=== PATIENT | female | born 1950 | race Caucasian/White ===

== ENCOUNTER → 2019-02-01 | Outpatient (CLI) | payer MEDICARE, BC ==
[~2019-02-01] MED LIST: ACET325 PO; AMOCLA875 PO; Bactrim Ds Tab1 EACH PO; Cleocin HCl150 MG PO; HYDACE5 PO; HYDR1TAB94 PO; Ibuprofen Ib200 MG; Ibuprofen Ib200 MG PO; RXHYDACE PO; TRIA80TC; TRIA80TC TOP
[2019-02-03 13:11] LABS: Stool Occult Bld Immuno 1 Negative (NEGATIVE)
== END | disposition home or self-care (01) ==
LOC: OLS 10:00 → LAB SHORT 10:00
PROVIDERS: Internal Medicine
DX: Z12.11 Encounter for screening for malignant neoplasm of colon (principal)
CPT/HCPCS: G0328

== ENCOUNTER 2020-03-18 14:58 | Emergency (ER) | payer MEDICARE ==
[~2020-03-18] VITALS: Ht 160 cm; Wt 47.2 kg
[~2020-03-18 14:58] MED LIST changes: +GABA100 PO; +LISI5 PO
[2020-03-18 15:38] LABS: BASOPHILS ABSOLUTE AUTO 0.03 K/mm3 (0.00-0.23); BASOPHILS PERCENT AUTO 0 % (0-2); EOSINOPHILS ABSOLUTE AUTO 0.02 K/mm3 (0.00-0.68); EOSINOPHILS PERCENT AUTO 0 % (0-6); Hematocrit 44.4 % (33.0-51.0); Hemoglobin 13.7 g/dL (11.5-16.0); IMMATURE GRAN ABSOLUTE AUTO 0.02 K/mm3 (0.00-0.10); IMMATURE GRAN PERCENT AUTO 0 % (0-1); LYMPHOCYTES ABSOLUTE AUTO 1.19 K/mm3 (0.84-5.20); LYMPHOCYTES PERCENT AUTO 16 % (21-46); MONOCYTES ABSOLUTE AUTO 0.49 K/mm3 (0.16-1.47); MONOCYTES PERCENT AUTO 7 % (4-13); Mean Corpuscular HGB 28.3 pg (26.0-34.0); Mean Corpuscular HGB Conc 30.9 g/dL (31.5-36.5); Mean Corpuscular Volume 92 fL (80-100); Mean Platelet Volume 9.7 fL (9.1-12.4); NEUTROPHILS ABSOLUTE AUTO 5.82 K/mm3 (1.96-9.15); NEUTROPHILS PERCENT AUTO 77 % (41-73); Platelet Count 121 K/mm3 (150-400); RDW Coefficient Variation 18.4 % (11.7-14.2); RDW Standard Deviation 62.4 fL (35.1-46.3); Red Blood Cell Count 4.84 M/mm3 (3.80-5.20); White Blood Cell Count 7.57 K/mm3 (4.00-11.30)
[2020-03-18 15:54] LABS: Alanine Aminotransfer (ALT/SGP 18 U/L (12-78); Albumin, Blood 3.2 g/dL (3.4-5.0); Albumin/Globulin Ratio 0.5 (0.8-1.8); Alk Phos 145 U/L (50-136); Anion Gap 9 mmol/L (6-16); Aspartate Aminotrans (AST/SGOT 63 U/L (12-37); Bilirubin, Total 2.5 mg/dL (0.1-1.0); Blood Urea Nitrogen 11 mg/dL (8-24); Bun/Creatinine Ratio 17.5 (12.0-20.0); CO2, Blood 24 mmol/L (21-32); Calcium, Blood 9.3 mg/dL (8.5-10.1); Chloride, Blood 104 mmol/L (98-108); Creatinine, Blood 0.63 mg/dL (0.40-1.00); Globulin, Blood 7.1 g/dL (2.2-4.0); Glomerular Filtration Rate >60 (60-); Glucose, Blood 125 mg/dL (70-99); Sodium, Blood 137 mmol/L (136-145); Total Protein, Blood 10.3 g/dL (6.4-8.2)
== END 2020-03-19 02:42 | disposition home or self-care (01) ==
LOC: ER 14:58
PROVIDERS: Physician Assistant
DX: J98.2 Interstitial emphysema (principal); C50.912 Malignant neoplasm of unspecified site of left female breast; Z92.21 Personal history of antineoplastic chemotherapy; Z79.899 Other long term (current) drug therapy; Z91.030 Bee allergy status; Z88.2 Allergy status to sulfonamides; Z88.8 Allergy status to other drugs, medicaments and biological substances
CPT/HCPCS: 36415; 71046; 71260; 80053; 85025; 93005; 93010; 99285-25; Q9967

== ENCOUNTER 2020-05-07 00:12 | Day surgery (SDC) | payer MEDICARE | END 2020-05-07 22:36 | disposition home or self-care (01) | LOC: WOUND 00:12 | DX: L98.495 Non-pressure chronic ulcer of skin of other sites with muscle involvement without evidence of necrosis (principal); L03.313 Cellulitis of chest wall; B95.62 Methicillin resistant Staphylococcus aureus infection as the cause of diseases classified elsewhere; B95.4 Other streptococcus as the cause of diseases classified elsewhere; L59.8 Other specified disorders of the skin and subcutaneous tissue related to radiation; C50.812 Malignant neoplasm of overlapping sites of left female breast; C77.3 Secondary and unspecified malignant neoplasm of axilla and upper limb lymph nodes; C79.51 Secondary malignant neoplasm of bone; I10 Essential (primary) hypertension; G62.0 Drug-induced polyneuropathy; Y84.2 Radiological procedure and radiotherapy as the cause of abnormal reaction of the patient, or of later complication, without mention of misadventure at the time of the procedure; Z92.21 Personal history of antineoplastic chemotherapy; Z92.3 Personal history of irradiation; Z99.81 Dependence on supplemental oxygen; Z88.2 Allergy status to sulfonamides; Z91.030 Bee allergy status; Z88.8 Allergy status to other drugs, medicaments and biological substances; Z91.038 Other insect allergy status; Z90.12 Acquired absence of left breast and nipple | CPT/HCPCS: 11102; 87071; 87075; 87077; 87147; 87186; 87205; 88305; 88312; A9270; G0463 ==

== ENCOUNTER 2020-05-12 01:35 | Day surgery (SDC) | payer MEDICARE | END 2020-05-12 22:40 | disposition home or self-care (01) | LOC: WOUND 01:35 | DX: T81.31XA Disruption of external operation (surgical) wound, not elsewhere classified, initial encounter (principal); C50.812 Malignant neoplasm of overlapping sites of left female breast; C77.3 Secondary and unspecified malignant neoplasm of axilla and upper limb lymph nodes; C79.51 Secondary malignant neoplasm of bone; Y83.8 Other surgical procedures as the cause of abnormal reaction of the patient, or of later complication, without mention of misadventure at the time of the procedure | CPT/HCPCS: 88305; 88312; A9270 ==

== ENCOUNTER 2020-05-19 00:08 | Day surgery (SDC) | payer MEDICARE | END 2020-05-19 22:55 | disposition home or self-care (01) | LOC: WOUND 00:08 | DX: L59.8 Other specified disorders of the skin and subcutaneous tissue related to radiation (principal); L98.495 Non-pressure chronic ulcer of skin of other sites with muscle involvement without evidence of necrosis; I96 Gangrene, not elsewhere classified; C50.812 Malignant neoplasm of overlapping sites of left female breast; C77.3 Secondary and unspecified malignant neoplasm of axilla and upper limb lymph nodes; C79.51 Secondary malignant neoplasm of bone; Z86.14 Personal history of Methicillin resistant Staphylococcus aureus infection; Z92.3 Personal history of irradiation; Z92.21 Personal history of antineoplastic chemotherapy; Z90.13 Acquired absence of bilateral breasts and nipples; Y84.2 Radiological procedure and radiotherapy as the cause of abnormal reaction of the patient, or of later complication, without mention of misadventure at the time of the procedure | CPT/HCPCS: A9270 ==

== ENCOUNTER 2020-05-26 00:54 | Day surgery (SDC) | payer MEDICARE | END 2020-05-26 22:54 | disposition home or self-care (01) | LOC: HBO 00:54 | DX: L59.8 Other specified disorders of the skin and subcutaneous tissue related to radiation (principal); L98.499 Non-pressure chronic ulcer of skin of other sites with unspecified severity; C50.812 Malignant neoplasm of overlapping sites of left female breast; C77.3 Secondary and unspecified malignant neoplasm of axilla and upper limb lymph nodes; C79.51 Secondary malignant neoplasm of bone; Z90.12 Acquired absence of left breast and nipple | CPT/HCPCS: A9270; G0277 ==

== ENCOUNTER 2020-05-27 00:33 | Day surgery (SDC) | payer MEDICARE | END 2020-05-27 23:13 | disposition home or self-care (01) | LOC: HBO 00:33 | DX: L59.8 Other specified disorders of the skin and subcutaneous tissue related to radiation (principal); L98.499 Non-pressure chronic ulcer of skin of other sites with unspecified severity; C50.812 Malignant neoplasm of overlapping sites of left female breast; C77.3 Secondary and unspecified malignant neoplasm of axilla and upper limb lymph nodes; C79.51 Secondary malignant neoplasm of bone; Y84.2 Radiological procedure and radiotherapy as the cause of abnormal reaction of the patient, or of later complication, without mention of misadventure at the time of the procedure; Z90.12 Acquired absence of left breast and nipple | CPT/HCPCS: G0277 ==

== ENCOUNTER 2020-05-28 00:16 | Day surgery (SDC) | payer MEDICARE | END 2020-05-28 22:35 | disposition home or self-care (01) | LOC: HBO 00:16 | DX: L59.8 Other specified disorders of the skin and subcutaneous tissue related to radiation (principal); L98.499 Non-pressure chronic ulcer of skin of other sites with unspecified severity; C50.812 Malignant neoplasm of overlapping sites of left female breast; C77.3 Secondary and unspecified malignant neoplasm of axilla and upper limb lymph nodes; C79.51 Secondary malignant neoplasm of bone; Z90.12 Acquired absence of left breast and nipple | CPT/HCPCS: G0277 ==

== ENCOUNTER 2020-05-29 00:13 | Day surgery (SDC) | payer MEDICARE | END 2020-05-29 23:30 | disposition home or self-care (01) | LOC: HBO 00:13 | DX: L59.8 Other specified disorders of the skin and subcutaneous tissue related to radiation (principal); L98.499 Non-pressure chronic ulcer of skin of other sites with unspecified severity; C50.812 Malignant neoplasm of overlapping sites of left female breast; C77.3 Secondary and unspecified malignant neoplasm of axilla and upper limb lymph nodes; C79.51 Secondary malignant neoplasm of bone | CPT/HCPCS: G0277 ==

== ENCOUNTER 2020-05-30 02:08 | Day surgery (SDC) | payer MEDICARE | END 2020-05-30 22:36 | disposition home or self-care (01) | LOC: HBO 02:08 | DX: L59.8 Other specified disorders of the skin and subcutaneous tissue related to radiation (principal); L98.499 Non-pressure chronic ulcer of skin of other sites with unspecified severity; C50.812 Malignant neoplasm of overlapping sites of left female breast; C77.3 Secondary and unspecified malignant neoplasm of axilla and upper limb lymph nodes; C79.51 Secondary malignant neoplasm of bone | CPT/HCPCS: G0277 ==

== ENCOUNTER 2020-06-02 02:27 | Day surgery (SDC) | payer MEDICARE | END 2020-06-02 22:51 | disposition home or self-care (01) | LOC: HBO 02:27 | DX: L59.8 Other specified disorders of the skin and subcutaneous tissue related to radiation (principal); L98.499 Non-pressure chronic ulcer of skin of other sites with unspecified severity; C50.812 Malignant neoplasm of overlapping sites of left female breast; C77.3 Secondary and unspecified malignant neoplasm of axilla and upper limb lymph nodes; C79.51 Secondary malignant neoplasm of bone | CPT/HCPCS: A9270; G0277 ==

== ENCOUNTER 2020-06-04 01:22 | Day surgery (SDC) | payer MEDICARE | END 2020-06-04 22:45 | disposition home or self-care (01) | LOC: HBO 01:22 | DX: L59.8 Other specified disorders of the skin and subcutaneous tissue related to radiation (principal); L98.499 Non-pressure chronic ulcer of skin of other sites with unspecified severity; C50.812 Malignant neoplasm of overlapping sites of left female breast; C77.3 Secondary and unspecified malignant neoplasm of axilla and upper limb lymph nodes; C79.51 Secondary malignant neoplasm of bone | CPT/HCPCS: G0277 ==

== ENCOUNTER 2020-06-05 00:20 | Day surgery (SDC) | payer MEDICARE | END 2020-06-05 22:47 | disposition home or self-care (01) | LOC: HBO 00:20 | DX: L59.8 Other specified disorders of the skin and subcutaneous tissue related to radiation (principal); L98.499 Non-pressure chronic ulcer of skin of other sites with unspecified severity; C50.812 Malignant neoplasm of overlapping sites of left female breast; C77.3 Secondary and unspecified malignant neoplasm of axilla and upper limb lymph nodes; C79.51 Secondary malignant neoplasm of bone | CPT/HCPCS: G0277 ==

== ENCOUNTER 2020-06-06 08:34 | Day surgery (SDC) | payer MEDICARE | END 2020-06-06 22:45 | disposition home or self-care (01) | LOC: HBO 08:34 | DX: L59.8 Other specified disorders of the skin and subcutaneous tissue related to radiation (principal); L98.499 Non-pressure chronic ulcer of skin of other sites with unspecified severity; C50.812 Malignant neoplasm of overlapping sites of left female breast; C77.3 Secondary and unspecified malignant neoplasm of axilla and upper limb lymph nodes; C79.51 Secondary malignant neoplasm of bone | CPT/HCPCS: G0277 ==

== ENCOUNTER 2020-06-09 08:00 | Day surgery (SDC) | payer MEDICARE | END 2020-06-09 23:59 | disposition home or self-care (01) | LOC: HBO 08:00 | DX: L59.8 Other specified disorders of the skin and subcutaneous tissue related to radiation (principal); L98.495 Non-pressure chronic ulcer of skin of other sites with muscle involvement without evidence of necrosis; C50.812 Malignant neoplasm of overlapping sites of left female breast; C77.3 Secondary and unspecified malignant neoplasm of axilla and upper limb lymph nodes; C79.51 Secondary malignant neoplasm of bone; Z90.12 Acquired absence of left breast and nipple; Y84.2 Radiological procedure and radiotherapy as the cause of abnormal reaction of the patient, or of later complication, without mention of misadventure at the time of the procedure | CPT/HCPCS: A9270; G0277 ==

== ENCOUNTER 2020-06-11 00:22 | Day surgery (SDC) | payer MEDICARE | END 2020-06-11 22:39 | disposition home or self-care (01) | LOC: HBO 00:22 | DX: L59.8 Other specified disorders of the skin and subcutaneous tissue related to radiation (principal); L98.499 Non-pressure chronic ulcer of skin of other sites with unspecified severity; C50.812 Malignant neoplasm of overlapping sites of left female breast; C77.3 Secondary and unspecified malignant neoplasm of axilla and upper limb lymph nodes; C79.51 Secondary malignant neoplasm of bone | CPT/HCPCS: G0277 ==

== ENCOUNTER 2020-06-12 00:24 | Day surgery (SDC) | payer MEDICARE | END 2020-06-12 22:50 | disposition home or self-care (01) | LOC: HBO 00:24 | DX: L59.8 Other specified disorders of the skin and subcutaneous tissue related to radiation (principal); L98.499 Non-pressure chronic ulcer of skin of other sites with unspecified severity; C50.812 Malignant neoplasm of overlapping sites of left female breast; C77.3 Secondary and unspecified malignant neoplasm of axilla and upper limb lymph nodes; C79.51 Secondary malignant neoplasm of bone | CPT/HCPCS: G0277 ==

== ENCOUNTER 2020-06-13 00:33 | Day surgery (SDC) | payer MEDICARE | END 2020-06-13 22:55 | disposition home or self-care (01) | LOC: HBO 00:33 | DX: L59.8 Other specified disorders of the skin and subcutaneous tissue related to radiation (principal); L98.499 Non-pressure chronic ulcer of skin of other sites with unspecified severity; C50.812 Malignant neoplasm of overlapping sites of left female breast; C77.3 Secondary and unspecified malignant neoplasm of axilla and upper limb lymph nodes; C79.51 Secondary malignant neoplasm of bone | CPT/HCPCS: G0277 ==

== ENCOUNTER 2020-06-16 01:40 | Day surgery (SDC) | payer MEDICARE | END 2020-06-16 22:45 | disposition home or self-care (01) | LOC: HBO 01:40 | DX: L59.8 Other specified disorders of the skin and subcutaneous tissue related to radiation (principal); L98.499 Non-pressure chronic ulcer of skin of other sites with unspecified severity; C50.812 Malignant neoplasm of overlapping sites of left female breast; C77.3 Secondary and unspecified malignant neoplasm of axilla and upper limb lymph nodes; C79.51 Secondary malignant neoplasm of bone | CPT/HCPCS: G0277 ==

== ENCOUNTER 2020-06-18 00:19 | Day surgery (SDC) | payer MEDICARE | END 2020-06-18 22:44 | disposition home or self-care (01) | LOC: HBO 00:19 | DX: L59.8 Other specified disorders of the skin and subcutaneous tissue related to radiation (principal); L98.499 Non-pressure chronic ulcer of skin of other sites with unspecified severity; C50.812 Malignant neoplasm of overlapping sites of left female breast; C77.3 Secondary and unspecified malignant neoplasm of axilla and upper limb lymph nodes; C79.51 Secondary malignant neoplasm of bone | CPT/HCPCS: G0277 ==

== ENCOUNTER 2020-06-20 00:55 | Day surgery (SDC) | payer MEDICARE | END 2020-06-20 23:06 | disposition home or self-care (01) | LOC: HBO 00:55 | DX: L59.8 Other specified disorders of the skin and subcutaneous tissue related to radiation (principal); L98.499 Non-pressure chronic ulcer of skin of other sites with unspecified severity; C50.812 Malignant neoplasm of overlapping sites of left female breast; C77.3 Secondary and unspecified malignant neoplasm of axilla and upper limb lymph nodes; C79.51 Secondary malignant neoplasm of bone | CPT/HCPCS: G0277 ==

== ENCOUNTER 2020-06-23 00:31 | Day surgery (SDC) | payer MEDICARE | END 2020-06-23 22:36 | disposition home or self-care (01) | LOC: HBO 00:31 | DX: L59.8 Other specified disorders of the skin and subcutaneous tissue related to radiation (principal); L98.499 Non-pressure chronic ulcer of skin of other sites with unspecified severity; C50.812 Malignant neoplasm of overlapping sites of left female breast; C77.3 Secondary and unspecified malignant neoplasm of axilla and upper limb lymph nodes; C79.51 Secondary malignant neoplasm of bone | CPT/HCPCS: G0277 ==

== ENCOUNTER 2020-06-24 00:24 | Day surgery (SDC) | payer MEDICARE | END 2020-06-24 22:36 | disposition home or self-care (01) | LOC: WOUND 00:24 | DX: L59.8 Other specified disorders of the skin and subcutaneous tissue related to radiation (principal); L98.499 Non-pressure chronic ulcer of skin of other sites with unspecified severity; C50.812 Malignant neoplasm of overlapping sites of left female breast; C77.8 Secondary and unspecified malignant neoplasm of lymph nodes of multiple regions; C79.51 Secondary malignant neoplasm of bone | CPT/HCPCS: A9270 ==

== ENCOUNTER 2020-06-26 00:35 | Day surgery (SDC) | payer MEDICARE | END 2020-06-26 23:14 | disposition home or self-care (01) | LOC: HBO 00:35 | DX: L59.8 Other specified disorders of the skin and subcutaneous tissue related to radiation (principal); L98.499 Non-pressure chronic ulcer of skin of other sites with unspecified severity; C50.812 Malignant neoplasm of overlapping sites of left female breast; C77.3 Secondary and unspecified malignant neoplasm of axilla and upper limb lymph nodes; C79.51 Secondary malignant neoplasm of bone; Y84.2 Radiological procedure and radiotherapy as the cause of abnormal reaction of the patient, or of later complication, without mention of misadventure at the time of the procedure | CPT/HCPCS: G0277 ==

== ENCOUNTER 2020-06-27 00:52 | Day surgery (SDC) | payer MEDICARE | END 2020-06-27 23:22 | disposition home or self-care (01) | LOC: HBO 00:52 | DX: L59.8 Other specified disorders of the skin and subcutaneous tissue related to radiation (principal); L98.499 Non-pressure chronic ulcer of skin of other sites with unspecified severity; C50.812 Malignant neoplasm of overlapping sites of left female breast; C77.3 Secondary and unspecified malignant neoplasm of axilla and upper limb lymph nodes; C79.51 Secondary malignant neoplasm of bone; Y84.2 Radiological procedure and radiotherapy as the cause of abnormal reaction of the patient, or of later complication, without mention of misadventure at the time of the procedure | CPT/HCPCS: G0277 ==

== ENCOUNTER 2020-06-30 00:32 | Day surgery (SDC) | payer MEDICARE | END 2020-06-30 22:59 | disposition home or self-care (01) | LOC: HBO 00:32 | DX: L59.8 Other specified disorders of the skin and subcutaneous tissue related to radiation (principal); L98.499 Non-pressure chronic ulcer of skin of other sites with unspecified severity; C50.812 Malignant neoplasm of overlapping sites of left female breast; C77.3 Secondary and unspecified malignant neoplasm of axilla and upper limb lymph nodes; C79.51 Secondary malignant neoplasm of bone | CPT/HCPCS: G0277 ==

== ENCOUNTER 2020-07-01 00:31 | Day surgery (SDC) | payer MEDICARE | END 2020-07-01 23:21 | disposition home or self-care (01) | LOC: HBO 00:31 | DX: L59.8 Other specified disorders of the skin and subcutaneous tissue related to radiation (principal); L98.499 Non-pressure chronic ulcer of skin of other sites with unspecified severity; C50.812 Malignant neoplasm of overlapping sites of left female breast; C77.3 Secondary and unspecified malignant neoplasm of axilla and upper limb lymph nodes; C79.51 Secondary malignant neoplasm of bone | CPT/HCPCS: G0277 ==

== ENCOUNTER 2020-07-01 00:39 | Day surgery (SDC) | payer MEDICARE | END 2020-07-01 23:21 | disposition home or self-care (01) | LOC: WOUND 00:39 | DX: L59.8 Other specified disorders of the skin and subcutaneous tissue related to radiation (principal); L98.499 Non-pressure chronic ulcer of skin of other sites with unspecified severity; C50.812 Malignant neoplasm of overlapping sites of left female breast; C77.3 Secondary and unspecified malignant neoplasm of axilla and upper limb lymph nodes; C79.51 Secondary malignant neoplasm of bone | CPT/HCPCS: A9270 ==

== ENCOUNTER 2020-07-10 01:58 | Day surgery (SDC) | payer MEDICARE | END 2020-07-10 22:56 | disposition home or self-care (01) | LOC: HBO 01:58 | DX: L59.8 Other specified disorders of the skin and subcutaneous tissue related to radiation (principal); L98.499 Non-pressure chronic ulcer of skin of other sites with unspecified severity; C50.812 Malignant neoplasm of overlapping sites of left female breast; C77.3 Secondary and unspecified malignant neoplasm of axilla and upper limb lymph nodes; C79.51 Secondary malignant neoplasm of bone | CPT/HCPCS: A9270; G0277 ==

== ENCOUNTER 2020-07-11 02:10 | Day surgery (SDC) | payer MEDICARE | END 2020-07-11 23:00 | disposition home or self-care (01) | LOC: HBO 02:10 | DX: L59.8 Other specified disorders of the skin and subcutaneous tissue related to radiation (principal); L98.499 Non-pressure chronic ulcer of skin of other sites with unspecified severity; C50.812 Malignant neoplasm of overlapping sites of left female breast; C77.3 Secondary and unspecified malignant neoplasm of axilla and upper limb lymph nodes; C79.51 Secondary malignant neoplasm of bone | CPT/HCPCS: A9270; G0277; J0690; J2250; J3010; J7030 ==

== ENCOUNTER 2020-07-14 00:08 | Day surgery (SDC) | payer MEDICARE | END 2020-07-14 22:37 | disposition home or self-care (01) | LOC: HBO 00:08 | DX: L59.8 Other specified disorders of the skin and subcutaneous tissue related to radiation (principal); L98.499 Non-pressure chronic ulcer of skin of other sites with unspecified severity; C50.812 Malignant neoplasm of overlapping sites of left female breast; C77.3 Secondary and unspecified malignant neoplasm of axilla and upper limb lymph nodes; C79.51 Secondary malignant neoplasm of bone; Y84.2 Radiological procedure and radiotherapy as the cause of abnormal reaction of the patient, or of later complication, without mention of misadventure at the time of the procedure | CPT/HCPCS: G0277 ==

== ENCOUNTER 2020-07-15 00:20 | Day surgery (SDC) | payer MEDICARE | END 2020-07-15 22:40 | disposition home or self-care (01) | LOC: WOUND 00:20 | DX: T81.31XA Disruption of external operation (surgical) wound, not elsewhere classified, initial encounter (principal); L59.8 Other specified disorders of the skin and subcutaneous tissue related to radiation; L98.499 Non-pressure chronic ulcer of skin of other sites with unspecified severity; C50.812 Malignant neoplasm of overlapping sites of left female breast; C77.3 Secondary and unspecified malignant neoplasm of axilla and upper limb lymph nodes; C79.51 Secondary malignant neoplasm of bone | CPT/HCPCS: A9270 ==

== ENCOUNTER 2020-07-15 00:29 | Day surgery (SDC) | payer MEDICARE | END 2020-07-15 22:40 | disposition home or self-care (01) | LOC: HBO 00:29 | DX: L59.8 Other specified disorders of the skin and subcutaneous tissue related to radiation (principal); L98.499 Non-pressure chronic ulcer of skin of other sites with unspecified severity; C50.812 Malignant neoplasm of overlapping sites of left female breast; C77.3 Secondary and unspecified malignant neoplasm of axilla and upper limb lymph nodes; C79.51 Secondary malignant neoplasm of bone | CPT/HCPCS: G0277 ==

== ENCOUNTER 2020-07-17 00:27 | Day surgery (SDC) | payer MEDICARE | END 2020-07-17 22:37 | disposition home or self-care (01) | LOC: HBO 00:27 | DX: L59.8 Other specified disorders of the skin and subcutaneous tissue related to radiation (principal); L98.499 Non-pressure chronic ulcer of skin of other sites with unspecified severity; C50.812 Malignant neoplasm of overlapping sites of left female breast; C79.51 Secondary malignant neoplasm of bone; C77.3 Secondary and unspecified malignant neoplasm of axilla and upper limb lymph nodes; Y84.2 Radiological procedure and radiotherapy as the cause of abnormal reaction of the patient, or of later complication, without mention of misadventure at the time of the procedure; Z90.12 Acquired absence of left breast and nipple | CPT/HCPCS: G0277 ==

== ENCOUNTER 2020-07-18 00:47 | Day surgery (SDC) | payer MEDICARE | END 2020-07-18 22:59 | disposition home or self-care (01) | LOC: HBO 00:47 | DX: L59.8 Other specified disorders of the skin and subcutaneous tissue related to radiation (principal); L98.499 Non-pressure chronic ulcer of skin of other sites with unspecified severity; C50.812 Malignant neoplasm of overlapping sites of left female breast; C77.3 Secondary and unspecified malignant neoplasm of axilla and upper limb lymph nodes; C79.51 Secondary malignant neoplasm of bone | CPT/HCPCS: G0277 ==

== ENCOUNTER 2020-07-21 00:14 | Day surgery (SDC) | payer MEDICARE | END 2020-07-21 22:46 | disposition home or self-care (01) | LOC: HBO 00:14 | DX: L59.8 Other specified disorders of the skin and subcutaneous tissue related to radiation (principal); L98.499 Non-pressure chronic ulcer of skin of other sites with unspecified severity; C50.812 Malignant neoplasm of overlapping sites of left female breast; C77.3 Secondary and unspecified malignant neoplasm of axilla and upper limb lymph nodes; C79.51 Secondary malignant neoplasm of bone; Y84.2 Radiological procedure and radiotherapy as the cause of abnormal reaction of the patient, or of later complication, without mention of misadventure at the time of the procedure | CPT/HCPCS: G0277 ==

== ENCOUNTER 2020-07-22 03:27 | Day surgery (SDC) | payer MEDICARE | END 2020-07-22 23:02 | disposition home or self-care (01) | LOC: WOUND 03:27 | DX: T81.31XA Disruption of external operation (surgical) wound, not elsewhere classified, initial encounter (principal); L59.8 Other specified disorders of the skin and subcutaneous tissue related to radiation; L98.499 Non-pressure chronic ulcer of skin of other sites with unspecified severity; C50.812 Malignant neoplasm of overlapping sites of left female breast; C79.51 Secondary malignant neoplasm of bone; C77.3 Secondary and unspecified malignant neoplasm of axilla and upper limb lymph nodes | CPT/HCPCS: A9270 ==

== ENCOUNTER 2020-07-22 03:28 | Day surgery (SDC) | payer MEDICARE | END 2020-07-22 23:03 | disposition home or self-care (01) | LOC: HBO 03:28 | DX: L59.8 Other specified disorders of the skin and subcutaneous tissue related to radiation (principal); L98.499 Non-pressure chronic ulcer of skin of other sites with unspecified severity; C50.812 Malignant neoplasm of overlapping sites of left female breast; C77.3 Secondary and unspecified malignant neoplasm of axilla and upper limb lymph nodes; C79.51 Secondary malignant neoplasm of bone | CPT/HCPCS: G0277 ==

== ENCOUNTER 2020-07-23 03:46 | Day surgery (SDC) | payer MEDICARE | END 2020-07-23 22:40 | disposition home or self-care (01) | LOC: HBO 03:46 | DX: L59.8 Other specified disorders of the skin and subcutaneous tissue related to radiation (principal); L98.499 Non-pressure chronic ulcer of skin of other sites with unspecified severity; C50.812 Malignant neoplasm of overlapping sites of left female breast; C77.3 Secondary and unspecified malignant neoplasm of axilla and upper limb lymph nodes; C79.51 Secondary malignant neoplasm of bone | CPT/HCPCS: G0277 ==

== ENCOUNTER 2020-07-25 00:40 | Day surgery (SDC) | payer MEDICARE | END 2020-07-25 22:37 | disposition home or self-care (01) | LOC: HBO 00:40 | DX: L59.8 Other specified disorders of the skin and subcutaneous tissue related to radiation (principal); L98.499 Non-pressure chronic ulcer of skin of other sites with unspecified severity; C50.812 Malignant neoplasm of overlapping sites of left female breast; C77.3 Secondary and unspecified malignant neoplasm of axilla and upper limb lymph nodes; C79.51 Secondary malignant neoplasm of bone | CPT/HCPCS: G0277 ==

== ENCOUNTER 2020-07-28 00:13 | Day surgery (SDC) | payer MEDICARE | END 2020-07-28 22:55 | disposition home or self-care (01) | LOC: HBO 00:13 | DX: L59.8 Other specified disorders of the skin and subcutaneous tissue related to radiation (principal); L98.499 Non-pressure chronic ulcer of skin of other sites with unspecified severity; C50.812 Malignant neoplasm of overlapping sites of left female breast; C77.3 Secondary and unspecified malignant neoplasm of axilla and upper limb lymph nodes; C79.51 Secondary malignant neoplasm of bone; Y84.2 Radiological procedure and radiotherapy as the cause of abnormal reaction of the patient, or of later complication, without mention of misadventure at the time of the procedure | CPT/HCPCS: G0277 ==

== ENCOUNTER 2020-07-29 02:59 | Day surgery (SDC) | payer MEDICARE | END 2020-07-29 23:01 | disposition home or self-care (01) | LOC: WOUND 02:59 | DX: T81.31XA Disruption of external operation (surgical) wound, not elsewhere classified, initial encounter (principal); L59.8 Other specified disorders of the skin and subcutaneous tissue related to radiation; L98.499 Non-pressure chronic ulcer of skin of other sites with unspecified severity; C50.812 Malignant neoplasm of overlapping sites of left female breast; C79.51 Secondary malignant neoplasm of bone; C77.3 Secondary and unspecified malignant neoplasm of axilla and upper limb lymph nodes; Z91.030 Bee allergy status; Z88.2 Allergy status to sulfonamides | CPT/HCPCS: A9270 ==

== ENCOUNTER 2020-07-29 03:01 | Day surgery (SDC) | payer MEDICARE | END 2020-07-29 23:01 | disposition home or self-care (01) | LOC: HBO 03:01 | DX: L59.8 Other specified disorders of the skin and subcutaneous tissue related to radiation (principal); L98.499 Non-pressure chronic ulcer of skin of other sites with unspecified severity; C50.812 Malignant neoplasm of overlapping sites of left female breast; C77.3 Secondary and unspecified malignant neoplasm of axilla and upper limb lymph nodes; C79.51 Secondary malignant neoplasm of bone | CPT/HCPCS: G0277 ==

== ENCOUNTER 2020-07-30 03:23 | Day surgery (SDC) | payer MEDICARE | END 2020-07-30 23:17 | disposition home or self-care (01) | LOC: HBO 03:23 | DX: L59.8 Other specified disorders of the skin and subcutaneous tissue related to radiation (principal); L98.499 Non-pressure chronic ulcer of skin of other sites with unspecified severity; C50.812 Malignant neoplasm of overlapping sites of left female breast; C77.3 Secondary and unspecified malignant neoplasm of axilla and upper limb lymph nodes; C79.51 Secondary malignant neoplasm of bone | CPT/HCPCS: G0277 ==

== ENCOUNTER 2020-07-31 03:57 | Day surgery (SDC) | payer MEDICARE | END 2020-07-31 22:56 | disposition home or self-care (01) | LOC: HBO 03:57 | DX: L59.8 Other specified disorders of the skin and subcutaneous tissue related to radiation (principal); L98.499 Non-pressure chronic ulcer of skin of other sites with unspecified severity; C50.812 Malignant neoplasm of overlapping sites of left female breast; C77.3 Secondary and unspecified malignant neoplasm of axilla and upper limb lymph nodes; C79.51 Secondary malignant neoplasm of bone | CPT/HCPCS: G0277 ==

== ENCOUNTER 2020-08-01 00:56 | Day surgery (SDC) | payer MEDICARE | END 2020-08-01 23:07 | disposition home or self-care (01) | LOC: HBO 00:56 | DX: L59.8 Other specified disorders of the skin and subcutaneous tissue related to radiation (principal); L98.499 Non-pressure chronic ulcer of skin of other sites with unspecified severity; C50.812 Malignant neoplasm of overlapping sites of left female breast; C77.3 Secondary and unspecified malignant neoplasm of axilla and upper limb lymph nodes; C79.51 Secondary malignant neoplasm of bone | CPT/HCPCS: G0277 ==

== ENCOUNTER 2020-08-05 04:49 | Day surgery (SDC) | payer MEDICARE | END 2020-08-05 23:39 | disposition home or self-care (01) | LOC: HBO 04:49 | DX: L59.8 Other specified disorders of the skin and subcutaneous tissue related to radiation (principal); L98.499 Non-pressure chronic ulcer of skin of other sites with unspecified severity; C50.812 Malignant neoplasm of overlapping sites of left female breast; C77.3 Secondary and unspecified malignant neoplasm of axilla and upper limb lymph nodes; Z79.51 Long term (current) use of inhaled steroids; Z90.12 Acquired absence of left breast and nipple; Y84.2 Radiological procedure and radiotherapy as the cause of abnormal reaction of the patient, or of later complication, without mention of misadventure at the time of the procedure | CPT/HCPCS: G0277 ==

== ENCOUNTER 2020-08-06 04:37 | Day surgery (SDC) | payer MEDICARE | END 2020-08-06 22:55 | disposition home or self-care (01) | LOC: HBO 04:37 | DX: L59.8 Other specified disorders of the skin and subcutaneous tissue related to radiation (principal); L98.499 Non-pressure chronic ulcer of skin of other sites with unspecified severity; C50.812 Malignant neoplasm of overlapping sites of left female breast; C77.3 Secondary and unspecified malignant neoplasm of axilla and upper limb lymph nodes; C79.51 Secondary malignant neoplasm of bone; Z90.12 Acquired absence of left breast and nipple; Y84.2 Radiological procedure and radiotherapy as the cause of abnormal reaction of the patient, or of later complication, without mention of misadventure at the time of the procedure | CPT/HCPCS: G0277 ==

== ENCOUNTER 2020-08-08 04:23 | Day surgery (SDC) | payer MEDICARE | END 2020-08-08 22:39 | disposition home or self-care (01) | LOC: HBO 04:23 | DX: L59.8 Other specified disorders of the skin and subcutaneous tissue related to radiation (principal); C50.812 Malignant neoplasm of overlapping sites of left female breast; L98.499 Non-pressure chronic ulcer of skin of other sites with unspecified severity; C77.3 Secondary and unspecified malignant neoplasm of axilla and upper limb lymph nodes; C79.51 Secondary malignant neoplasm of bone | CPT/HCPCS: G0277 ==

== ENCOUNTER 2020-08-11 00:38 | Day surgery (SDC) | payer MEDICARE | END 2020-08-11 22:53 | disposition home or self-care (01) | LOC: HBO 00:38 | DX: L59.8 Other specified disorders of the skin and subcutaneous tissue related to radiation (principal); L98.499 Non-pressure chronic ulcer of skin of other sites with unspecified severity; C50.812 Malignant neoplasm of overlapping sites of left female breast; C77.3 Secondary and unspecified malignant neoplasm of axilla and upper limb lymph nodes; C79.51 Secondary malignant neoplasm of bone | CPT/HCPCS: G0277 ==

== ENCOUNTER 2020-08-12 02:17 | Day surgery (SDC) | payer MEDICARE | END 2020-08-12 22:45 | disposition home or self-care (01) | LOC: HBO 02:17 | DX: L59.8 Other specified disorders of the skin and subcutaneous tissue related to radiation (principal); L98.499 Non-pressure chronic ulcer of skin of other sites with unspecified severity; C50.812 Malignant neoplasm of overlapping sites of left female breast; C77.3 Secondary and unspecified malignant neoplasm of axilla and upper limb lymph nodes; C79.51 Secondary malignant neoplasm of bone | CPT/HCPCS: A9270; G0277 ==

== ENCOUNTER 2020-08-13 02:22 | Day surgery (SDC) | payer MEDICARE | END 2020-08-13 23:48 | disposition home or self-care (01) | LOC: HBO 02:22 | DX: L59.8 Other specified disorders of the skin and subcutaneous tissue related to radiation (principal); L98.499 Non-pressure chronic ulcer of skin of other sites with unspecified severity; C50.812 Malignant neoplasm of overlapping sites of left female breast; C77.3 Secondary and unspecified malignant neoplasm of axilla and upper limb lymph nodes; C79.51 Secondary malignant neoplasm of bone | CPT/HCPCS: G0277 ==

== ENCOUNTER 2020-08-15 04:15 | Day surgery (SDC) | payer MEDICARE | END 2020-08-16 00:30 | disposition home or self-care (01) | LOC: HBO 04:15 | DX: L59.8 Other specified disorders of the skin and subcutaneous tissue related to radiation (principal); L98.499 Non-pressure chronic ulcer of skin of other sites with unspecified severity; C50.812 Malignant neoplasm of overlapping sites of left female breast; C77.3 Secondary and unspecified malignant neoplasm of axilla and upper limb lymph nodes; C79.51 Secondary malignant neoplasm of bone | CPT/HCPCS: G0277 ==

== ENCOUNTER 2020-08-18 00:27 | Day surgery (SDC) | payer MEDICARE | END 2020-08-18 23:05 | disposition home or self-care (01) | LOC: HBO 00:27 | DX: L59.8 Other specified disorders of the skin and subcutaneous tissue related to radiation (principal); L98.499 Non-pressure chronic ulcer of skin of other sites with unspecified severity; C50.812 Malignant neoplasm of overlapping sites of left female breast; C77.3 Secondary and unspecified malignant neoplasm of axilla and upper limb lymph nodes; C79.51 Secondary malignant neoplasm of bone; Y84.2 Radiological procedure and radiotherapy as the cause of abnormal reaction of the patient, or of later complication, without mention of misadventure at the time of the procedure | CPT/HCPCS: G0277 ==

== ENCOUNTER 2020-08-19 00:23 | Day surgery (SDC) | payer MEDICARE | END 2020-08-19 22:41 | disposition home or self-care (01) | LOC: WOUND 00:23 | DX: L59.8 Other specified disorders of the skin and subcutaneous tissue related to radiation (principal); L98.495 Non-pressure chronic ulcer of skin of other sites with muscle involvement without evidence of necrosis; C50.812 Malignant neoplasm of overlapping sites of left female breast; C77.3 Secondary and unspecified malignant neoplasm of axilla and upper limb lymph nodes; C79.51 Secondary malignant neoplasm of bone; C78.00 Secondary malignant neoplasm of unspecified lung; Z88.2 Allergy status to sulfonamides; Z91.030 Bee allergy status; Z90.12 Acquired absence of left breast and nipple | CPT/HCPCS: A9270 ==

== ENCOUNTER 2020-08-19 00:26 | Day surgery (SDC) | payer MEDICARE | END 2020-08-20 22:42 | disposition home or self-care (01) | LOC: HBO 00:26 | DX: L59.8 Other specified disorders of the skin and subcutaneous tissue related to radiation (principal); L98.499 Non-pressure chronic ulcer of skin of other sites with unspecified severity; C50.812 Malignant neoplasm of overlapping sites of left female breast; C77.3 Secondary and unspecified malignant neoplasm of axilla and upper limb lymph nodes; C79.51 Secondary malignant neoplasm of bone; Z90.12 Acquired absence of left breast and nipple; Y84.2 Radiological procedure and radiotherapy as the cause of abnormal reaction of the patient, or of later complication, without mention of misadventure at the time of the procedure | CPT/HCPCS: G0277 ==

== ENCOUNTER 2020-08-20 04:35 | Day surgery (SDC) | payer MEDICARE | END 2020-08-20 22:42 | disposition home or self-care (01) | LOC: HBO 04:35 | DX: L59.8 Other specified disorders of the skin and subcutaneous tissue related to radiation (principal); L98.499 Non-pressure chronic ulcer of skin of other sites with unspecified severity; C50.812 Malignant neoplasm of overlapping sites of left female breast; C77.3 Secondary and unspecified malignant neoplasm of axilla and upper limb lymph nodes; C79.51 Secondary malignant neoplasm of bone | CPT/HCPCS: G0277 ==

== ENCOUNTER 2020-08-21 04:07 | Day surgery (SDC) | payer MEDICARE | END 2020-08-21 23:12 | disposition home or self-care (01) | LOC: HBO 04:07 | DX: L59.8 Other specified disorders of the skin and subcutaneous tissue related to radiation (principal); L98.499 Non-pressure chronic ulcer of skin of other sites with unspecified severity; C50.812 Malignant neoplasm of overlapping sites of left female breast; C77.3 Secondary and unspecified malignant neoplasm of axilla and upper limb lymph nodes; C79.51 Secondary malignant neoplasm of bone | CPT/HCPCS: G0277 ==

== ENCOUNTER 2020-08-22 04:44 | Day surgery (SDC) | payer MEDICARE | END 2020-08-22 23:49 | disposition home or self-care (01) | LOC: HBO 04:44 | DX: L59.8 Other specified disorders of the skin and subcutaneous tissue related to radiation (principal); L98.499 Non-pressure chronic ulcer of skin of other sites with unspecified severity; C50.812 Malignant neoplasm of overlapping sites of left female breast; C77.3 Secondary and unspecified malignant neoplasm of axilla and upper limb lymph nodes; C79.51 Secondary malignant neoplasm of bone | CPT/HCPCS: G0277 ==

== ENCOUNTER 2020-08-25 00:47 | Day surgery (SDC) | payer MEDICARE | END 2020-08-26 02:17 | disposition home or self-care (01) | LOC: HBO 00:47 | DX: L59.8 Other specified disorders of the skin and subcutaneous tissue related to radiation (principal); L98.499 Non-pressure chronic ulcer of skin of other sites with unspecified severity; C50.812 Malignant neoplasm of overlapping sites of left female breast; C77.3 Secondary and unspecified malignant neoplasm of axilla and upper limb lymph nodes; C79.51 Secondary malignant neoplasm of bone | CPT/HCPCS: G0277 ==

== ENCOUNTER 2020-08-26 04:41 | Day surgery (SDC) | payer MEDICARE | END 2020-08-26 22:55 | disposition home or self-care (01) | LOC: HBO 04:41 | DX: L59.8 Other specified disorders of the skin and subcutaneous tissue related to radiation (principal); L98.499 Non-pressure chronic ulcer of skin of other sites with unspecified severity; C50.812 Malignant neoplasm of overlapping sites of left female breast; C77.3 Secondary and unspecified malignant neoplasm of axilla and upper limb lymph nodes; C79.51 Secondary malignant neoplasm of bone | CPT/HCPCS: A9270; G0277 ==

== ENCOUNTER 2020-08-27 04:30 | Day surgery (SDC) | payer MEDICARE | END 2020-08-27 22:59 | disposition home or self-care (01) | LOC: HBO 04:30 | DX: L59.8 Other specified disorders of the skin and subcutaneous tissue related to radiation (principal); L98.499 Non-pressure chronic ulcer of skin of other sites with unspecified severity; C50.812 Malignant neoplasm of overlapping sites of left female breast; C77.3 Secondary and unspecified malignant neoplasm of axilla and upper limb lymph nodes; C79.51 Secondary malignant neoplasm of bone | CPT/HCPCS: G0277 ==

== ENCOUNTER 2020-08-28 00:29 | Day surgery (SDC) | payer MEDICARE | END 2020-08-28 22:41 | disposition home or self-care (01) | LOC: HBO 00:29 | DX: L59.8 Other specified disorders of the skin and subcutaneous tissue related to radiation (principal); L98.499 Non-pressure chronic ulcer of skin of other sites with unspecified severity; C50.812 Malignant neoplasm of overlapping sites of left female breast; C77.3 Secondary and unspecified malignant neoplasm of axilla and upper limb lymph nodes; C79.51 Secondary malignant neoplasm of bone | CPT/HCPCS: G0277 ==

== ENCOUNTER 2020-09-02 03:46 | Day surgery (SDC) | payer MEDICARE | END 2020-09-02 23:43 | disposition home or self-care (01) | LOC: WOUND 03:46 | DX: T81.31XA Disruption of external operation (surgical) wound, not elsewhere classified, initial encounter (principal); L59.8 Other specified disorders of the skin and subcutaneous tissue related to radiation; L98.499 Non-pressure chronic ulcer of skin of other sites with unspecified severity; C50.812 Malignant neoplasm of overlapping sites of left female breast; C77.3 Secondary and unspecified malignant neoplasm of axilla and upper limb lymph nodes; C79.51 Secondary malignant neoplasm of bone; Z88.2 Allergy status to sulfonamides; Z91.030 Bee allergy status | CPT/HCPCS: A9270 ==

== ENCOUNTER 2020-09-09 04:19 | Day surgery (SDC) | payer MEDICARE | END 2020-09-09 22:43 | disposition home or self-care (01) | LOC: WOUND 04:19 | DX: T81.31XA Disruption of external operation (surgical) wound, not elsewhere classified, initial encounter (principal); L98.499 Non-pressure chronic ulcer of skin of other sites with unspecified severity; L59.8 Other specified disorders of the skin and subcutaneous tissue related to radiation; C50.812 Malignant neoplasm of overlapping sites of left female breast; C77.3 Secondary and unspecified malignant neoplasm of axilla and upper limb lymph nodes; C79.51 Secondary malignant neoplasm of bone | CPT/HCPCS: A9270; G0463 ==

== ENCOUNTER 2020-09-09 04:20 | Day surgery (SDC) | payer MEDICARE | END 2020-09-09 22:44 | disposition home or self-care (01) | LOC: HBO 04:20 | DX: L59.8 Other specified disorders of the skin and subcutaneous tissue related to radiation (principal); L98.499 Non-pressure chronic ulcer of skin of other sites with unspecified severity; C50.812 Malignant neoplasm of overlapping sites of left female breast; C77.3 Secondary and unspecified malignant neoplasm of axilla and upper limb lymph nodes; C79.51 Secondary malignant neoplasm of bone | CPT/HCPCS: G0277 ==

== ENCOUNTER 2020-09-10 01:18 | Day surgery (SDC) | payer MEDICARE | END 2020-09-10 23:42 | disposition home or self-care (01) | LOC: HBO 01:18 | DX: L59.8 Other specified disorders of the skin and subcutaneous tissue related to radiation (principal); L98.499 Non-pressure chronic ulcer of skin of other sites with unspecified severity; C50.812 Malignant neoplasm of overlapping sites of left female breast; C77.3 Secondary and unspecified malignant neoplasm of axilla and upper limb lymph nodes; C79.51 Secondary malignant neoplasm of bone | CPT/HCPCS: G0277 ==

== ENCOUNTER 2020-09-11 01:32 | Day surgery (SDC) | payer MEDICARE | END 2020-09-11 23:29 | disposition home or self-care (01) | LOC: HBO 01:32 | DX: L59.8 Other specified disorders of the skin and subcutaneous tissue related to radiation (principal); L98.499 Non-pressure chronic ulcer of skin of other sites with unspecified severity; C50.812 Malignant neoplasm of overlapping sites of left female breast; C77.3 Secondary and unspecified malignant neoplasm of axilla and upper limb lymph nodes; C79.51 Secondary malignant neoplasm of bone | CPT/HCPCS: G0277 ==

== ENCOUNTER 2020-09-12 00:44 | Day surgery (SDC) | payer MEDICARE | END 2020-09-12 23:00 | disposition home or self-care (01) | LOC: HBO 00:44 | DX: L59.8 Other specified disorders of the skin and subcutaneous tissue related to radiation (principal); L98.499 Non-pressure chronic ulcer of skin of other sites with unspecified severity; C50.812 Malignant neoplasm of overlapping sites of left female breast; C77.3 Secondary and unspecified malignant neoplasm of axilla and upper limb lymph nodes; C79.51 Secondary malignant neoplasm of bone | CPT/HCPCS: G0277 ==

== ENCOUNTER 2020-09-16 00:59 | Day surgery (SDC) | payer MEDICARE | END 2020-09-16 23:25 | disposition home or self-care (01) | LOC: WOUND 00:59 | DX: L98.499 Non-pressure chronic ulcer of skin of other sites with unspecified severity (principal); L59.8 Other specified disorders of the skin and subcutaneous tissue related to radiation; C50.812 Malignant neoplasm of overlapping sites of left female breast; C77.3 Secondary and unspecified malignant neoplasm of axilla and upper limb lymph nodes; C79.51 Secondary malignant neoplasm of bone | CPT/HCPCS: A9270 ==

== ENCOUNTER 2020-09-16 01:00 | Day surgery (SDC) | payer MEDICARE | END 2020-09-16 23:25 | disposition home or self-care (01) | LOC: HBO 01:00 | DX: L59.8 Other specified disorders of the skin and subcutaneous tissue related to radiation (principal); L98.499 Non-pressure chronic ulcer of skin of other sites with unspecified severity; C50.812 Malignant neoplasm of overlapping sites of left female breast; C77.3 Secondary and unspecified malignant neoplasm of axilla and upper limb lymph nodes; C79.51 Secondary malignant neoplasm of bone | CPT/HCPCS: G0277 ==

== ENCOUNTER 2020-09-18 00:42 | Day surgery (SDC) | payer MEDICARE | END 2020-09-18 22:40 | disposition home or self-care (01) | LOC: HBO 00:42 | DX: L59.8 Other specified disorders of the skin and subcutaneous tissue related to radiation (principal); L98.499 Non-pressure chronic ulcer of skin of other sites with unspecified severity; C50.812 Malignant neoplasm of overlapping sites of left female breast; C77.3 Secondary and unspecified malignant neoplasm of axilla and upper limb lymph nodes; C79.51 Secondary malignant neoplasm of bone | CPT/HCPCS: G0277 ==

== ENCOUNTER 2020-09-19 01:25 | Day surgery (SDC) | payer MEDICARE | END 2020-09-19 22:41 | disposition home or self-care (01) | LOC: HBO 01:25 | DX: L59.8 Other specified disorders of the skin and subcutaneous tissue related to radiation (principal); L98.499 Non-pressure chronic ulcer of skin of other sites with unspecified severity; C50.812 Malignant neoplasm of overlapping sites of left female breast; C77.3 Secondary and unspecified malignant neoplasm of axilla and upper limb lymph nodes; C79.51 Secondary malignant neoplasm of bone | CPT/HCPCS: G0277 ==

== ENCOUNTER 2020-09-22 01:28 | Day surgery (SDC) | payer MEDICARE | END 2020-09-22 22:51 | disposition home or self-care (01) | LOC: HBO 01:28 | DX: L59.8 Other specified disorders of the skin and subcutaneous tissue related to radiation (principal); L98.499 Non-pressure chronic ulcer of skin of other sites with unspecified severity; C50.812 Malignant neoplasm of overlapping sites of left female breast; C77.3 Secondary and unspecified malignant neoplasm of axilla and upper limb lymph nodes; C79.51 Secondary malignant neoplasm of bone | CPT/HCPCS: G0277 ==

== ENCOUNTER 2020-09-23 04:11 | Day surgery (SDC) | payer MEDICARE | END 2020-09-23 23:50 | disposition home or self-care (01) | LOC: WOUND 04:11 | DX: T81.31XA Disruption of external operation (surgical) wound, not elsewhere classified, initial encounter (principal); L98.499 Non-pressure chronic ulcer of skin of other sites with unspecified severity; L59.8 Other specified disorders of the skin and subcutaneous tissue related to radiation; C50.812 Malignant neoplasm of overlapping sites of left female breast; C77.3 Secondary and unspecified malignant neoplasm of axilla and upper limb lymph nodes; C79.51 Secondary malignant neoplasm of bone | CPT/HCPCS: A9270 ==

== ENCOUNTER 2020-09-24 02:09 | Day surgery (SDC) | payer MEDICARE | END 2020-09-24 23:05 | disposition home or self-care (01) | LOC: HBO 02:09 | DX: L59.8 Other specified disorders of the skin and subcutaneous tissue related to radiation (principal); L98.499 Non-pressure chronic ulcer of skin of other sites with unspecified severity; C50.812 Malignant neoplasm of overlapping sites of left female breast; C77.3 Secondary and unspecified malignant neoplasm of axilla and upper limb lymph nodes; C79.51 Secondary malignant neoplasm of bone | CPT/HCPCS: G0277 ==

== ENCOUNTER 2020-09-26 01:43 | Day surgery (SDC) | payer MEDICARE | END 2020-09-26 12:00 | disposition home or self-care (01) | LOC: HBO 01:43 | DX: L59.8 Other specified disorders of the skin and subcutaneous tissue related to radiation (principal); L98.499 Non-pressure chronic ulcer of skin of other sites with unspecified severity; C50.812 Malignant neoplasm of overlapping sites of left female breast; C77.3 Secondary and unspecified malignant neoplasm of axilla and upper limb lymph nodes; C79.51 Secondary malignant neoplasm of bone | CPT/HCPCS: G0277 ==

== ENCOUNTER 2020-09-29 02:45 | Day surgery (SDC) | payer MEDICARE | END 2020-09-29 22:58 | disposition home or self-care (01) | LOC: HBO 02:45 | DX: L59.8 Other specified disorders of the skin and subcutaneous tissue related to radiation (principal); L98.499 Non-pressure chronic ulcer of skin of other sites with unspecified severity; C50.812 Malignant neoplasm of overlapping sites of left female breast; C77.3 Secondary and unspecified malignant neoplasm of axilla and upper limb lymph nodes; C79.51 Secondary malignant neoplasm of bone | CPT/HCPCS: G0277 ==

== ENCOUNTER 2020-09-30 07:05 | Day surgery (SDC) | payer MEDICARE | END 2020-09-30 22:44 | disposition home or self-care (01) | LOC: WOUND 07:05 | DX: T81.31XA Disruption of external operation (surgical) wound, not elsewhere classified, initial encounter (principal); L59.8 Other specified disorders of the skin and subcutaneous tissue related to radiation; L98.499 Non-pressure chronic ulcer of skin of other sites with unspecified severity; C50.812 Malignant neoplasm of overlapping sites of left female breast; C77.3 Secondary and unspecified malignant neoplasm of axilla and upper limb lymph nodes; C79.51 Secondary malignant neoplasm of bone; Z91.030 Bee allergy status; Z88.2 Allergy status to sulfonamides | CPT/HCPCS: A9270 ==

== ENCOUNTER 2020-09-30 07:06 | Day surgery (SDC) | payer MEDICARE | END 2020-09-30 22:44 | disposition home or self-care (01) | LOC: HBO 07:06 | DX: L59.8 Other specified disorders of the skin and subcutaneous tissue related to radiation (principal); L98.499 Non-pressure chronic ulcer of skin of other sites with unspecified severity; C50.812 Malignant neoplasm of overlapping sites of left female breast; C77.3 Secondary and unspecified malignant neoplasm of axilla and upper limb lymph nodes; C79.51 Secondary malignant neoplasm of bone | CPT/HCPCS: G0277 ==

== ENCOUNTER 2020-10-02 02:14 | Day surgery (SDC) | payer MEDICARE | END 2020-10-02 22:38 | disposition home or self-care (01) | LOC: HBO 02:14 | DX: L59.8 Other specified disorders of the skin and subcutaneous tissue related to radiation (principal); L98.499 Non-pressure chronic ulcer of skin of other sites with unspecified severity; C50.812 Malignant neoplasm of overlapping sites of left female breast; C77.3 Secondary and unspecified malignant neoplasm of axilla and upper limb lymph nodes; C79.51 Secondary malignant neoplasm of bone | CPT/HCPCS: G0277 ==

== ENCOUNTER 2020-10-03 01:11 | Day surgery (SDC) | payer MEDICARE | END 2020-10-03 23:14 | disposition home or self-care (01) | LOC: HBO 01:11 | DX: L59.8 Other specified disorders of the skin and subcutaneous tissue related to radiation (principal); L98.499 Non-pressure chronic ulcer of skin of other sites with unspecified severity; C50.812 Malignant neoplasm of overlapping sites of left female breast; C77.3 Secondary and unspecified malignant neoplasm of axilla and upper limb lymph nodes; C79.51 Secondary malignant neoplasm of bone | CPT/HCPCS: G0277 ==

== ENCOUNTER 2020-10-06 01:53 | Day surgery (SDC) | payer MEDICARE | END 2020-10-06 22:58 | disposition home or self-care (01) | LOC: HBO 01:53 | DX: L59.8 Other specified disorders of the skin and subcutaneous tissue related to radiation (principal); L98.499 Non-pressure chronic ulcer of skin of other sites with unspecified severity; C50.812 Malignant neoplasm of overlapping sites of left female breast; C77.3 Secondary and unspecified malignant neoplasm of axilla and upper limb lymph nodes; C79.51 Secondary malignant neoplasm of bone | CPT/HCPCS: G0277 ==

== ENCOUNTER 2020-10-08 01:29 | Day surgery (SDC) | payer MEDICARE | END 2020-10-08 22:59 | disposition home or self-care (01) | LOC: HBO 01:29 | DX: L59.8 Other specified disorders of the skin and subcutaneous tissue related to radiation (principal); L98.499 Non-pressure chronic ulcer of skin of other sites with unspecified severity; C50.812 Malignant neoplasm of overlapping sites of left female breast; C77.3 Secondary and unspecified malignant neoplasm of axilla and upper limb lymph nodes; C79.51 Secondary malignant neoplasm of bone | CPT/HCPCS: G0277 ==

== ENCOUNTER 2020-10-10 00:29 | Day surgery (SDC) | payer MEDICARE | END 2020-10-10 23:00 | disposition home or self-care (01) | LOC: HBO 00:29 | DX: L59.8 Other specified disorders of the skin and subcutaneous tissue related to radiation (principal); L98.499 Non-pressure chronic ulcer of skin of other sites with unspecified severity; C50.812 Malignant neoplasm of overlapping sites of left female breast; C77.3 Secondary and unspecified malignant neoplasm of axilla and upper limb lymph nodes; C79.51 Secondary malignant neoplasm of bone | CPT/HCPCS: A9270; G0277 ==

== ENCOUNTER 2020-10-14 01:43 | Day surgery (SDC) | payer MEDICARE | END 2020-10-14 23:28 | disposition home or self-care (01) | LOC: HBO 01:43 | DX: L59.8 Other specified disorders of the skin and subcutaneous tissue related to radiation (principal); L98.499 Non-pressure chronic ulcer of skin of other sites with unspecified severity; C50.812 Malignant neoplasm of overlapping sites of left female breast; C77.3 Secondary and unspecified malignant neoplasm of axilla and upper limb lymph nodes; C79.51 Secondary malignant neoplasm of bone | CPT/HCPCS: G0277 ==

== ENCOUNTER 2020-10-15 01:33 | Day surgery (SDC) | payer MEDICARE | END 2020-10-15 22:35 | disposition home or self-care (01) | LOC: HBO 01:33 | DX: L59.8 Other specified disorders of the skin and subcutaneous tissue related to radiation (principal); L98.499 Non-pressure chronic ulcer of skin of other sites with unspecified severity; C50.812 Malignant neoplasm of overlapping sites of left female breast; C77.3 Secondary and unspecified malignant neoplasm of axilla and upper limb lymph nodes; C79.51 Secondary malignant neoplasm of bone; Y84.2 Radiological procedure and radiotherapy as the cause of abnormal reaction of the patient, or of later complication, without mention of misadventure at the time of the procedure; T81.31XA Disruption of external operation (surgical) wound, not elsewhere classified, initial encounter | CPT/HCPCS: A9270; G0277 ==

== ENCOUNTER 2020-10-17 01:23 | Day surgery (SDC) | payer MEDICARE | END 2020-10-17 23:35 | disposition home or self-care (01) | LOC: HBO 01:23 | DX: L59.8 Other specified disorders of the skin and subcutaneous tissue related to radiation (principal); L98.499 Non-pressure chronic ulcer of skin of other sites with unspecified severity; C50.812 Malignant neoplasm of overlapping sites of left female breast; C77.3 Secondary and unspecified malignant neoplasm of axilla and upper limb lymph nodes; C79.51 Secondary malignant neoplasm of bone; Y84.2 Radiological procedure and radiotherapy as the cause of abnormal reaction of the patient, or of later complication, without mention of misadventure at the time of the procedure; Z90.12 Acquired absence of left breast and nipple | CPT/HCPCS: G0277 ==

== ENCOUNTER 2020-10-20 02:45 | Day surgery (SDC) | payer MEDICARE | END 2020-10-20 23:54 | disposition home or self-care (01) | LOC: HBO 02:45 | DX: L59.8 Other specified disorders of the skin and subcutaneous tissue related to radiation (principal); L98.499 Non-pressure chronic ulcer of skin of other sites with unspecified severity; C50.812 Malignant neoplasm of overlapping sites of left female breast; C77.3 Secondary and unspecified malignant neoplasm of axilla and upper limb lymph nodes; C79.51 Secondary malignant neoplasm of bone; Y84.2 Radiological procedure and radiotherapy as the cause of abnormal reaction of the patient, or of later complication, without mention of misadventure at the time of the procedure | CPT/HCPCS: G0277 ==

== ENCOUNTER 2020-10-22 02:31 | Day surgery (SDC) | payer MEDICARE | END 2020-10-22 23:01 | disposition home or self-care (01) | LOC: WOUND 02:31 | DX: L59.8 Other specified disorders of the skin and subcutaneous tissue related to radiation (principal); L98.499 Non-pressure chronic ulcer of skin of other sites with unspecified severity; C50.812 Malignant neoplasm of overlapping sites of left female breast; C77.3 Secondary and unspecified malignant neoplasm of axilla and upper limb lymph nodes; C79.51 Secondary malignant neoplasm of bone | CPT/HCPCS: A9270 ==

== ENCOUNTER 2020-10-22 02:41 | Day surgery (SDC) | payer MEDICARE | END 2020-10-22 23:01 | disposition home or self-care (01) | LOC: HBO 02:41 | DX: L59.8 Other specified disorders of the skin and subcutaneous tissue related to radiation (principal); L98.499 Non-pressure chronic ulcer of skin of other sites with unspecified severity; C50.812 Malignant neoplasm of overlapping sites of left female breast; C77.3 Secondary and unspecified malignant neoplasm of axilla and upper limb lymph nodes; C79.51 Secondary malignant neoplasm of bone | CPT/HCPCS: G0277 ==

== ENCOUNTER 2020-10-24 00:59 | Day surgery (SDC) | payer MEDICARE | END 2020-10-24 23:54 | disposition home or self-care (01) | LOC: HBO 00:59 | DX: L59.8 Other specified disorders of the skin and subcutaneous tissue related to radiation (principal); L98.499 Non-pressure chronic ulcer of skin of other sites with unspecified severity; C50.812 Malignant neoplasm of overlapping sites of left female breast; C77.3 Secondary and unspecified malignant neoplasm of axilla and upper limb lymph nodes; C79.51 Secondary malignant neoplasm of bone | CPT/HCPCS: G0277 ==

== ENCOUNTER 2020-10-27 02:23 | Day surgery (SDC) | payer MEDICARE | END 2020-10-27 23:16 | disposition home or self-care (01) | LOC: HBO 02:23 | DX: L59.8 Other specified disorders of the skin and subcutaneous tissue related to radiation (principal); L98.499 Non-pressure chronic ulcer of skin of other sites with unspecified severity; C50.812 Malignant neoplasm of overlapping sites of left female breast; C77.3 Secondary and unspecified malignant neoplasm of axilla and upper limb lymph nodes; C79.51 Secondary malignant neoplasm of bone; Y84.2 Radiological procedure and radiotherapy as the cause of abnormal reaction of the patient, or of later complication, without mention of misadventure at the time of the procedure | CPT/HCPCS: G0277 ==

== ENCOUNTER 2020-10-29 00:32 | Day surgery (SDC) | payer MEDICARE | END 2020-10-29 23:02 | disposition home or self-care (01) | LOC: HBO 00:32 | DX: L59.8 Other specified disorders of the skin and subcutaneous tissue related to radiation (principal); L98.499 Non-pressure chronic ulcer of skin of other sites with unspecified severity; C50.812 Malignant neoplasm of overlapping sites of left female breast; C77.3 Secondary and unspecified malignant neoplasm of axilla and upper limb lymph nodes; C79.51 Secondary malignant neoplasm of bone | CPT/HCPCS: A9270; G0277 ==

== ENCOUNTER 2020-10-31 02:30 | Day surgery (SDC) | payer MEDICARE | END 2020-10-31 23:09 | disposition home or self-care (01) | LOC: HBO 02:30 | DX: L59.8 Other specified disorders of the skin and subcutaneous tissue related to radiation (principal); L98.499 Non-pressure chronic ulcer of skin of other sites with unspecified severity; C50.812 Malignant neoplasm of overlapping sites of left female breast; C77.3 Secondary and unspecified malignant neoplasm of axilla and upper limb lymph nodes; C79.51 Secondary malignant neoplasm of bone | CPT/HCPCS: G0277 ==

== ENCOUNTER 2020-11-05 01:19 | Day surgery (SDC) | payer MEDICARE | END 2020-11-05 23:01 | disposition home or self-care (01) | LOC: HBO 01:19 | DX: L59.8 Other specified disorders of the skin and subcutaneous tissue related to radiation (principal); L98.499 Non-pressure chronic ulcer of skin of other sites with unspecified severity; C50.812 Malignant neoplasm of overlapping sites of left female breast; C77.3 Secondary and unspecified malignant neoplasm of axilla and upper limb lymph nodes; C79.51 Secondary malignant neoplasm of bone | CPT/HCPCS: A9270; G0277 ==

== ENCOUNTER 2020-11-07 03:00 | Day surgery (SDC) | payer MEDICARE | END 2020-11-07 23:27 | disposition home or self-care (01) | LOC: HBO 03:00 | DX: L59.8 Other specified disorders of the skin and subcutaneous tissue related to radiation (principal); L98.499 Non-pressure chronic ulcer of skin of other sites with unspecified severity; C50.812 Malignant neoplasm of overlapping sites of left female breast; C77.3 Secondary and unspecified malignant neoplasm of axilla and upper limb lymph nodes; C79.51 Secondary malignant neoplasm of bone | CPT/HCPCS: G0277 ==

== ENCOUNTER 2020-11-12 02:25 | Day surgery (SDC) | payer MEDICARE | END 2020-11-12 23:45 | disposition home or self-care (01) | LOC: HBO 02:25 | DX: L59.8 Other specified disorders of the skin and subcutaneous tissue related to radiation (principal); L98.499 Non-pressure chronic ulcer of skin of other sites with unspecified severity; C50.812 Malignant neoplasm of overlapping sites of left female breast; C77.3 Secondary and unspecified malignant neoplasm of axilla and upper limb lymph nodes; C79.51 Secondary malignant neoplasm of bone; Y84.2 Radiological procedure and radiotherapy as the cause of abnormal reaction of the patient, or of later complication, without mention of misadventure at the time of the procedure | CPT/HCPCS: G0277 ==

== ENCOUNTER 2020-11-13 01:48 | Day surgery (SDC) | payer MEDICARE | END 2020-11-13 23:01 | disposition home or self-care (01) | LOC: HBO 01:48 | DX: L59.8 Other specified disorders of the skin and subcutaneous tissue related to radiation (principal); L98.499 Non-pressure chronic ulcer of skin of other sites with unspecified severity; C50.812 Malignant neoplasm of overlapping sites of left female breast; C77.3 Secondary and unspecified malignant neoplasm of axilla and upper limb lymph nodes; C79.51 Secondary malignant neoplasm of bone; Y84.2 Radiological procedure and radiotherapy as the cause of abnormal reaction of the patient, or of later complication, without mention of misadventure at the time of the procedure | CPT/HCPCS: G0277 ==

== ENCOUNTER 2020-11-14 01:26 | Day surgery (SDC) | payer MEDICARE | END 2020-11-14 23:00 | disposition home or self-care (01) | LOC: HBO 01:26 | DX: L59.8 Other specified disorders of the skin and subcutaneous tissue related to radiation (principal); L98.499 Non-pressure chronic ulcer of skin of other sites with unspecified severity; C50.812 Malignant neoplasm of overlapping sites of left female breast; C77.3 Secondary and unspecified malignant neoplasm of axilla and upper limb lymph nodes; C79.51 Secondary malignant neoplasm of bone | CPT/HCPCS: G0277 ==

== ENCOUNTER 2020-11-17 00:52 | Day surgery (SDC) | payer MEDICARE | END 2020-11-17 23:00 | disposition home or self-care (01) | LOC: HBO 00:52 | PROC: 5A05121 Extracorporeal Hyperbaric Oxygenation, Intermittent (ICD-10-PCS; principal; 2020-11-17) | DX: L59.8 Other specified disorders of the skin and subcutaneous tissue related to radiation (principal); L98.499 Non-pressure chronic ulcer of skin of other sites with unspecified severity; C50.812 Malignant neoplasm of overlapping sites of left female breast; C77.3 Secondary and unspecified malignant neoplasm of axilla and upper limb lymph nodes; C79.51 Secondary malignant neoplasm of bone | CPT/HCPCS: G0277 ==

== ENCOUNTER 2020-11-19 00:47 | Day surgery (SDC) | payer MEDICARE | END 2020-11-19 23:55 | disposition home or self-care (01) | LOC: WOUND 00:47 | DX: L59.8 Other specified disorders of the skin and subcutaneous tissue related to radiation (principal); L98.495 Non-pressure chronic ulcer of skin of other sites with muscle involvement without evidence of necrosis; C50.812 Malignant neoplasm of overlapping sites of left female breast; C77.3 Secondary and unspecified malignant neoplasm of axilla and upper limb lymph nodes; C79.51 Secondary malignant neoplasm of bone; Y84.2 Radiological procedure and radiotherapy as the cause of abnormal reaction of the patient, or of later complication, without mention of misadventure at the time of the procedure; Z90.11 Acquired absence of right breast and nipple; Z88.2 Allergy status to sulfonamides; Z86.14 Personal history of Methicillin resistant Staphylococcus aureus infection; Z92.21 Personal history of antineoplastic chemotherapy; Z91.030 Bee allergy status | CPT/HCPCS: A9270 ==

== ENCOUNTER 2020-11-19 00:53 | Day surgery (SDC) | payer MEDICARE | END 2020-11-20 23:11 | disposition home or self-care (01) | LOC: HBO 00:53 | DX: L59.8 Other specified disorders of the skin and subcutaneous tissue related to radiation (principal); L98.499 Non-pressure chronic ulcer of skin of other sites with unspecified severity; C50.812 Malignant neoplasm of overlapping sites of left female breast; C77.3 Secondary and unspecified malignant neoplasm of axilla and upper limb lymph nodes; C79.51 Secondary malignant neoplasm of bone | CPT/HCPCS: A9270; G0277 ==

== ENCOUNTER 2020-12-03 02:35 | Day surgery (SDC) | payer MEDICARE | END 2020-12-03 22:45 | disposition home or self-care (01) | LOC: WOUND 02:35 | DX: T81.31XA Disruption of external operation (surgical) wound, not elsewhere classified, initial encounter (principal); L59.8 Other specified disorders of the skin and subcutaneous tissue related to radiation; L98.499 Non-pressure chronic ulcer of skin of other sites with unspecified severity; C50.812 Malignant neoplasm of overlapping sites of left female breast; C77.3 Secondary and unspecified malignant neoplasm of axilla and upper limb lymph nodes; C79.51 Secondary malignant neoplasm of bone; Z88.2 Allergy status to sulfonamides; Z91.030 Bee allergy status | CPT/HCPCS: A9270 ==

== ENCOUNTER 2020-12-10 02:05 | Day surgery (SDC) | payer MEDICARE | END 2020-12-10 23:00 | disposition home or self-care (01) | LOC: WOUND 02:05 | DX: T81.31XA Disruption of external operation (surgical) wound, not elsewhere classified, initial encounter (principal); L59.8 Other specified disorders of the skin and subcutaneous tissue related to radiation; L98.499 Non-pressure chronic ulcer of skin of other sites with unspecified severity; C50.812 Malignant neoplasm of overlapping sites of left female breast; C77.3 Secondary and unspecified malignant neoplasm of axilla and upper limb lymph nodes; C79.51 Secondary malignant neoplasm of bone; Z88.2 Allergy status to sulfonamides; Z91.030 Bee allergy status | CPT/HCPCS: A9270 ==

== ENCOUNTER 2020-12-24 04:41 | Day surgery (SDC) | payer MEDICARE | END 2020-12-24 23:54 | disposition home or self-care (01) | LOC: WOUND 04:41 | DX: T81.31XA Disruption of external operation (surgical) wound, not elsewhere classified, initial encounter (principal); L59.8 Other specified disorders of the skin and subcutaneous tissue related to radiation; L98.499 Non-pressure chronic ulcer of skin of other sites with unspecified severity; C50.812 Malignant neoplasm of overlapping sites of left female breast; C77.3 Secondary and unspecified malignant neoplasm of axilla and upper limb lymph nodes; C79.51 Secondary malignant neoplasm of bone; Z91.030 Bee allergy status; Z88.2 Allergy status to sulfonamides | CPT/HCPCS: A9270 ==

== ENCOUNTER 2021-01-07 02:31 | Day surgery (SDC) | payer MEDICARE | END 2021-01-07 12:00 | disposition home or self-care (01) | LOC: WOUND 02:31 | DX: T81.31XA Disruption of external operation (surgical) wound, not elsewhere classified, initial encounter (principal) | CPT/HCPCS: A9270; G0463 ==

== ENCOUNTER 2021-01-14 04:50 | Day surgery (SDC) | payer MEDICARE | END 2021-01-14 22:56 | disposition home or self-care (01) | LOC: WOUND 04:50 | DX: L59.8 Other specified disorders of the skin and subcutaneous tissue related to radiation (principal); L98.499 Non-pressure chronic ulcer of skin of other sites with unspecified severity; C50.812 Malignant neoplasm of overlapping sites of left female breast; C77.3 Secondary and unspecified malignant neoplasm of axilla and upper limb lymph nodes; C79.51 Secondary malignant neoplasm of bone | CPT/HCPCS: A9270; G0463 ==

== ENCOUNTER 2021-01-21 03:22 | Day surgery (SDC) | payer MEDICARE | END 2021-01-21 23:24 | disposition home or self-care (01) | LOC: WOUND | DX: T81.31XA Disruption of external operation (surgical) wound, not elsewhere classified, initial encounter (principal); L59.8 Other specified disorders of the skin and subcutaneous tissue related to radiation; L98.499 Non-pressure chronic ulcer of skin of other sites with unspecified severity; C50.812 Malignant neoplasm of overlapping sites of left female breast; C77.3 Secondary and unspecified malignant neoplasm of axilla and upper limb lymph nodes; C79.51 Secondary malignant neoplasm of bone | CPT/HCPCS: A9270 ==

== ENCOUNTER 2021-01-28 05:53 | Day surgery (SDC) | payer MEDICARE | END 2021-01-28 23:13 | disposition home or self-care (01) | LOC: WOUND 05:53 | DX: L98.499 Non-pressure chronic ulcer of skin of other sites with unspecified severity (principal); L59.8 Other specified disorders of the skin and subcutaneous tissue related to radiation; C50.812 Malignant neoplasm of overlapping sites of left female breast; C77.3 Secondary and unspecified malignant neoplasm of axilla and upper limb lymph nodes; C79.51 Secondary malignant neoplasm of bone | CPT/HCPCS: G0463 ==

== ENCOUNTER 2021-02-03 03:03 | Day surgery (SDC) | payer MEDICARE | END 2021-02-03 22:44 | disposition home or self-care (01) | LOC: WOUND 03:03 | DX: T81.31XA Disruption of external operation (surgical) wound, not elsewhere classified, initial encounter (principal); L59.8 Other specified disorders of the skin and subcutaneous tissue related to radiation; S21.102S Unspecified open wound of left front wall of thorax without penetration into thoracic cavity, sequela; X58.XXXS Exposure to other specified factors, sequela; L98.499 Non-pressure chronic ulcer of skin of other sites with unspecified severity; R77.0 Abnormality of albumin | CPT/HCPCS: A9270; G0463 ==

== ENCOUNTER 2021-02-17 01:14 | Day surgery (SDC) | payer MEDICARE | END 2021-02-17 23:06 | disposition home or self-care (01) | LOC: WOUND 01:14 | DX: T81.31XA Disruption of external operation (surgical) wound, not elsewhere classified, initial encounter (principal); S21.102D Unspecified open wound of left front wall of thorax without penetration into thoracic cavity, subsequent encounter; X58.XXXD Exposure to other specified factors, subsequent encounter; L59.8 Other specified disorders of the skin and subcutaneous tissue related to radiation; L98.499 Non-pressure chronic ulcer of skin of other sites with unspecified severity; R77.0 Abnormality of albumin | CPT/HCPCS: A9270 ==

== ENCOUNTER 2021-03-10 02:10 | Day surgery (SDC) | payer MEDICARE | END 2021-03-10 22:50 | disposition home or self-care (01) | LOC: WOUND 02:10 | DX: S21.9 Open wound of unspecified part of thorax (principal); X58.XXXS Exposure to other specified factors, sequela; L59.8 Other specified disorders of the skin and subcutaneous tissue related to radiation; L98.499 Non-pressure chronic ulcer of skin of other sites with unspecified severity; R77.0 Abnormality of albumin | CPT/HCPCS: A9270; G0463 ==

== ENCOUNTER 2021-03-24 05:49 | Day surgery (SDC) | payer MEDICARE | END 2021-03-24 22:37 | disposition home or self-care (01) | LOC: WOUND 05:49 | DX: L59.8 Other specified disorders of the skin and subcutaneous tissue related to radiation (principal); T81.31XA Disruption of external operation (surgical) wound, not elsewhere classified, initial encounter; I96 Gangrene, not elsewhere classified; Y83.8 Other surgical procedures as the cause of abnormal reaction of the patient, or of later complication, without mention of misadventure at the time of the procedure; C50.812 Malignant neoplasm of overlapping sites of left female breast; C77.3 Secondary and unspecified malignant neoplasm of axilla and upper limb lymph nodes; C79.51 Secondary malignant neoplasm of bone; L98.499 Non-pressure chronic ulcer of skin of other sites with unspecified severity; R77.0 Abnormality of albumin | CPT/HCPCS: A9270; G0463 ==

== ENCOUNTER 2021-04-07 00:52 | Day surgery (SDC) | payer MEDICARE | END 2021-04-07 01:00 | disposition home or self-care (01) | LOC: WOUND 00:52 | DX: T81.31XA Disruption of external operation (surgical) wound, not elsewhere classified, initial encounter (principal); L59.8 Other specified disorders of the skin and subcutaneous tissue related to radiation; Y83.8 Other surgical procedures as the cause of abnormal reaction of the patient, or of later complication, without mention of misadventure at the time of the procedure; Y84.2 Radiological procedure and radiotherapy as the cause of abnormal reaction of the patient, or of later complication, without mention of misadventure at the time of the procedure; C50.812 Malignant neoplasm of overlapping sites of left female breast; C77.3 Secondary and unspecified malignant neoplasm of axilla and upper limb lymph nodes; C79.51 Secondary malignant neoplasm of bone; Z90.12 Acquired absence of left breast and nipple | CPT/HCPCS: A9270 ==